=== PATIENT | male | born 1960 | race Caucasian/White ===

== ENCOUNTER 2020-01-10 01:16 | Day surgery (SDC) | payer BC, SELFPAY ==
[2020-01-04 14:40] VITALS: BMI 23.7
[2020-01-10 06:50] VITALS: BP 120/81; PULSE 63; RESP 16; TEMP 36.7; O2SAT 99
[2020-01-10] MEDS: LACTATED RINGERS 1,000 ML 150 ML IV CONT (07:21)
--- NOTE | 2020-01-10 07:23 | P.HP_ITS ---
History of Present Illness History of Present Illness Consent: Risks, benefits, and alternatives have been discussed and questions answered. Patient agrees to proceed with procedure. Chief complaint: neoplasm screening Narrative: Deshawn Kaplan is a 59 year old male here for screening colonoscopy [facility] Past Medical History Medical History Allergies Hypercholesterolemia Hyperglycemia Increasing prostate specific antigen level [place] exposure Mumps Myocardial infarction 02/2017 Surgical History Surgical History H/O foot surgery Left 2001 History of lumbar surgery 1989 S/P right coronary artery (RCA) stent placement Family History Family History Father Malignant neoplasm of prostate Mother Breast cancer Hypertension Diabetes mellitus Social History Social History Smoking status: Former smoker Smoking end date: 10/25/16 Alcohol intake: current Drinks per week: 5 Substance use: never Meds Home Medications and Allergies Home Medications Medication Instructions Recorded Confirmed Type aspirin 81 mg tablet,delayed 81 mg PO DAILY #90 tablet 09/13/19 01/05/20 Rx release atorvastatin 80 mg tablet 80 mg PO QPM #90 tablet 09/13/19 01/05/20 Rx metoprolol tartrate 25 mg tablet 12.5 mg PO BID #90 tablet 09/13/19 01/05/20 Rx Allergies Allergy/AdvReac Type Severity Reaction Status Date / Time Penicillins Allergy Unknown Hives Verified 01/05/20 09:06 Exam Resp: Auscultation: clear to auscultation bilaterally Cardio: Rate: regular rate Rhythm: regular rhythm GI: GI Palp: Yes Soft to palpation and No Tenderness to palpation present (GI) Assessment and Plan Assessment and plan (1) Colon cancer screening: Code(s): Z12.11 - Encounter for screening for malignant neoplasm of colon Status: Acute Assessment and Plan: Colonoscopy with possible biopsy or polypectomy or cautery or injection of substances.
--- NOTE | 2020-01-10 07:45 | WPDANESEPPF ---
Anes - Initial Pre Proc Eval Procedure: Operation Date: 01/10/20 08:00 Proposed Procedures p Screening Colonoscopy - Andrés Vang MD Date/Time: 01/10/20 07:45 Surgeon: Andrés Vang MD Pre Op Diagnosis: neoplasm screening Patient Data Age: 59 Gender: M Height: 6 ft 3 in Weight: 86 kg Last Vital Signs Temp 98.0 F 01/10/20 06:50 Pulse 63 01/10/20 06:50 Resp 16 01/10/20 06:50 BP 120/81 01/10/20 06:50 Pulse Ox 99 01/10/20 06:50 Allergies Allergy/AdvReac Type Severity Reaction Status Date / Time Penicillins Allergy Intermediate Hives Verified 01/10/20 07:29 Home Medications Medication Instructions Recorded Confirmed Type aspirin 81 mg tablet,delayed 81 mg PO DAILY #90 tablet 09/13/19 01/10/20 Rx release atorvastatin 80 mg tablet 80 mg PO QPM #90 tablet 09/13/19 01/10/20 Rx metoprolol tartrate 25 mg tablet 12.5 mg PO BID #90 tablet 09/13/19 01/10/20 Rx Patient hx anesthesia problems: none Family hx anesthesia problems: none PMFSH Past Medical History Medical History (Updated 01/10/20 @ 07:45 by Nando Escalera MD) Allergies Hypercholesterolemia Hyperglycemia Increasing prostate specific antigen level [place] exposure Mumps Myocardial infarction 02/2017; has one stent in plalce Surgical History Surgical History H/O foot surgery Left 2002 History of lumbar surgery 1989 S/P right coronary artery (RCA) stent placement Family History Family History Father Malignant neoplasm of prostate Mother Breast cancer Hypertension Diabetes mellitus Social History Social History Smoking status: Former smoker Smoking end date: 10/25/16 Alcohol intake: current Drinks per week: 5 Substance use: never Anes - Eval Final PreProcedure Day of Procedure 01/10/20 07:45 Patient weight: normal Heart: regular rate and rhythm Lungs: clear to auscultation Airway: Mallampati scale class II Neurological: alert and oriented Last oral intake: >/= 8 hours ASA classification: III Emergent: no Anesthetic plan: proceed Anesthesia type and monitoring: general GIVS and standard monitoring Informed Consent: The patient's anesthetic plan and its attendant risks and benefits were discussed with the patient/family/POA. Questions were solicited and answers provided to the satisfaction of the patient/family/POA.
[2020-01-10 08:25] VITALS: BP 101/70; PULSE 58; RESP 13; O2SAT 95
[2020-01-10 08:35] VITALS: BP 100/68; PULSE 56; RESP 13; O2SAT 97
[2020-01-10 08:45] VITALS: BP 108/76; PULSE 54; RESP 12; O2SAT 97
== END 2020-01-10 08:53 | disposition home or self-care (01) ==
PROVIDERS: PCP Internal Medicine; Visit Provider Internal Medicine Gastroenterology
PROC: 0DJD8ZZ Inspection of Lower Intestinal Tract, Via Natural or Artificial Opening Endoscopic (ICD-10-PCS; CPT 45378; principal; 2020-01-10 08:00)
DX: Z12.11 Encounter for screening for malignant neoplasm of colon (principal); D12.4 Benign neoplasm of descending colon; K57.30 Diverticulosis of large intestine without perforation or abscess without bleeding; E78.00 Pure hypercholesterolemia, unspecified; I25.2 Old myocardial infarction; Z95.5 Presence of coronary angioplasty implant and graft; Z79.82 Long term (current) use of aspirin; Z87.891 Personal history of nicotine dependence
CPT/HCPCS: 45385; 88305; J2704; J7120

== ENCOUNTER → 2023-01-21 14:28 | Outpatient (CLI) | payer BC, SELFPAY ==
--- NOTE | ~2023-01-21 | XR_ITS ---
XR hip RT 2V w AP pelvis DATE: 01/21/2023 14:46 INDICATION: Right hip pain for one week TECHNIQUE: AP pelvis. AP and lateral views of right hip COMPARISON: None FINDINGS: Degenerative disc disease and mild dextroscoliosis of the lumbar spine. Mild osteitis pubis. The pubic symphysis and sacral iliac joints are normally aligned. No pelvic frac ture or bone destruction. No fracture or dislocation, avascular necrosis or bone destruction of the right hip. Mild right hip o steoarthritis. Multiple nonspecific oval calcifications measuring approximately 10-12 mm overlie the pelvis. Cannot exclude bladder stones. IMPRESSION: Osteitis pubis No pelvic or right hip fracture or dislocation Reviewed, dictated and finalized at location L.
== END ==
PROVIDERS: PCP Internal Medicine; Visit Provider Nurse Practitioner
DX: M25.551 Pain in right hip (principal)
CPT/HCPCS: 73502

== ENCOUNTER 2025-03-27 09:17 | Outpatient (CLI) | payer MEDICARE, OTHER, SELFPAY ==
--- NOTE | ~2025-03-27 | XR_ITS ---
Left wrist Technique: PA, oblique, lateral, and ulnar deviation views were obtained. Clinical History: Pain Findings: No acute fracture or dislocation is seen. Osseous alignment is anatomic. Joint spaces are p reserved. Soft tissues are unremarkable. Impression: Unremarkable left wrist radiographs. Reviewed, dictated and finalized at location . Impression: Unremarkable left wrist radiographs.
--- NOTE | ~2025-03-27 | XR_ITS ---
Right wrist Technique: PA, oblique, lateral, and ulnar deviation views were obtained. Clinical History: Pain Findings: No acute fracture or dislocation is seen. Osseous alignment is anatomic. There is mild dege nerative change of the first CMC joint. Soft tissues are unremarkable. Impression: Mild degenerative change of the first CMC joint. Reviewed, dictated and finalized at [facility]. Impression: Mild degenerative change of the first CMC joint.
--- OUTSIDE RECORDS SUMMARY | 2025-03-27 09:39 | XMS_ITS | Referral Summary ---
Author Organization [facility] in [place] Address [address] [place] [address] Care Team Providers Care Sorting Grapple Operator Name Role Phone Hilario Rojas DO Primary Care Provider +1- [phone] Allergies Active Allergy Reactions Criticality Noted Date Comments Penicillin G Hives Medium 03/11/2017 Medications metoprolol (LOPRESSOR) 25 mg tabletIndicatio ns:hypertension Take 0.5 tablets (12.5 mg total) by mouth 2 times daily 03/13/2017 Active aspirin 81 mg enteric coated tabletIndicatio ns:for stent Take 1 tablet (81 mg total) by mouth every morning Active tamsulosin (FLOMAX) 0.4 mg extended release capsule TAKE 1 CAPSULE(0.4 MG) BY MOUTH EVERY NIGHT 30 capsule 2 03/03/2022 Active tamsulosin (FLOMAX) 0.4 mg extended release capsuleIndicati ons:Elevated PSA Take 1 capsule (0.4 mg total) by mouth nightly 90 capsule 3 04/02/2022 Active atorvastatin (LIPITOR) 20 mg tablet Take 1 tablet (20 mg total) by mouth daily 30 tablet 11 06/10/2022 Active Active Problems Problem Noted Date Diagnosed Date Mixed hyperlipidemia 06/14/2023 Presence of drug-eluting stent in right coronary artery 06/10/2022 Coronary artery disease invo lving [place] coronary artery of [place] heart without angina pectoris 05/15/2020 Old [place] (myocardial infarction) 05/15/2020 Essential hypertension 05/15/2020 Elevated PSA 10/06/2019 Overview (10/06/2019): Added automatically from request for surgery [id number] Social History Tobacco Use Types Packs/Day Years Used Date Smoking Tobacco: Former Cigarettes 0.5 20 1 7 - 2016 Smokeless Tobacco: Never Tobacco Cessation:Counseling Given: Not Answered Alcohol Use Standard Drinks/Week Comments Yes 0 (1 standard drink = 0.6 oz pur e alcohol) occasionally Sex and Gender Information Value Date Recorded Sex Assigned at Not on file 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 Gender Identity Not on file Sexual Orientation Not on file Last Filed Vital Signs Vital Sign Reading Time Taken Comments Blood Pressure 142/83 06/23/2024 3:01 PM CDT Pulse 70 06/23/2024 3:01 PM CDT Temperature 36.4 C (97.5 F) 05/15/2020 12:57 PM CDT Respiratory Rate 18 06/23/2024 3:01 PM CDT Oxygen Saturation 95% 03/05/2020 8:30 AM CDT Inhaled Oxygen Concentration - - Weight 93.9 kg (207 lb) 06/23/2024 3:01 PM CDT Height 190.5 cm (6' 3) 06/23/2024 3:01 PM CDT Body Mass Index 25.87 06/23/2024 3:01 PM CDT Plan of Treatment Not on file Medical Devices Implanted Type Area Php Web Developer Device Identifier Shelf Expiration Date Model / Serial / Lot Cardiac Stents Chest Description:Implanted in February 2017, per patient Insurance [employer] O[place] [employer] [place] [employer] OOS Care Teams Sorting Grapple Operator Relationship Specialty Start Date End Date Hilario Rojas DO PCP - General Internal Medicine 09/04/19
--- OUTSIDE RECORDS SUMMARY | 2025-03-27 09:39 | XMS_ITS | Clinical Summary ---
Author Organization [facility] Address [address] [place] [address] Care Team Providers Care Senior Marketing Data Analyst Name Role Phone Unavailable Primary Care Provider Unavailabl e Source Comments [facility],non-owned Affiliates and Associated Physician Practices is amultiple site organization consisting of ambulatory clinics and hospital sitesin [place], [place], [place] and [place]. This disclosure is being madepursuant to the Care Everywhere program and may not contain all information available regarding this patient. Last updated 18.[facility] Immunizations Immunization Administration Dates Next Due iNFLUENZA VACCINE, RECOM-BRIAN, QUADR. (FLUBLOCK QUADRIVALENT; 18Y+) (RIV4) 07/24/2018 Social History Tobacco Use Types Packs/Day Years Used Date Smoking Tobacco: Never Assessed Sex and Gender Information Value Date Recorded Sex Assigned at Not on file Legal Sex Male 12:46 PM CDT Gender Identity Not on file Sexual Orientation Not on file Plan of Treatment Health Maintenance Due Date Last Done Comments COLOGUARD (AGES 45-75) - COL ON CA SCREENING 1959 COLON MONITORING 1959 COLONOSCOPY - COLON CA SCREENING 1959 CT COLONOGRAPHY - COLON CA SCREENING 1959 Colorectal Cancer Screening 1959 FIT - COLON CA SCREENING 1959 FLEX SIG - COLON CA SCREENING 1959 HIV SCREENING 1974 HEPATITIS C SCREENING 07/15/1977 DTAP/TDAP/TD VACCINES (1 - Tdap) 1978 PNEUMOCOCCAL VACCINE 50+ (1 of 1 - PCV) 2009 ZOSTER VACCINE (1 of 2) 2009 LIPID TESTING 03/12/2022 03/12/2017 COVID-19 VACCINE (2023-2 5 season) 2024 DEPRESSION SCREENING 10/25/2024 INFLUENZA VACCINE (Season Ended) 2025 07/24/20 18 Respiratory Syncytial Virus (RSV) Vaccine Pt: or over 60 yrs (1 - 1-dose 75+ series) 2034 HEPATITIS B VACCINE Aged Out No longe r eligible based on patient's age to complete this topic HIB VACCINE Aged Out No longer eligi ble based on patient's age to complete this topic HPV VACCINE Aged Out No longer eligi ble based on patient's age to complete this topic MENINGOCOCCAL (Group B) VACC INE SHARED DECISION-MAKING Aged Out No longer eligibl e based on patient's age to complete this topic MENINGOCOCCAL GROUPS A/C/Y/W VACCINE Aged Out No longer eligible b ased on patient's age to complete this topic Insurance AETNA
--- OUTSIDE RECORDS SUMMARY | 2025-03-27 09:39 | XMS_ITS | Clinical Summary ---
Author Organization [facility] in [place] Address [address] [place] [address] Care Team Providers Care Repeat Photocomposing Machine Operator Name Role Phone Hilario Rojas DO Primary Care Provider +1- [phone] Allergies Active Allergy Reactions Criticality Noted Date [...] artery 06/10/2022 Coronary artery disease invo lving [place] coronary artery of [place] heart without angina pectoris 05/15/2020 Old [place] (myocardial infarction) 05/15/2020 Essential hypertension 05/15/2020 Elevated PSA 10/06/2019 Overview (10/06/2019): Added automatically from request for surgery [id number] Surgical History Surgery Date Site/Laterality Comments BACK SURGERY FOOT SURGERY Left TONSILLECTOMY CARDIAC CATHETERIZATION 03/19/2017 BMS mid RCA COLONOSCOPY 10/25/2019 - 10/24/2020 Medical History Medical History Date Comments Heart attack (HCC) Hypertension Chest pain Coronary artery disease Cardiac Stent Prostate disease Lesion Former smoker quit 2017 Elevated PSA Coronary artery disease invo lving [place] coronary artery of [place] heart without angina pectoris 05/15/2020 Family History Medical History Relation Name Comments Anesthesia problems Father Heart attack Father Prostate cancer Father Breast cancer Mother Relation Name Status Comments Father (Age 83) f rom [place], [place] at age 70 Mother Social History Tobacco Use Types Packs/Day Years Used Date Smoking Tobacco: Former Cigarettes 0.5 20 1 997 - 2016 Smokeless Tobacco: Never Tobacco Cessation:Counseling Given: Not Answered Alcohol Use Standard Drinks/Week Comments Yes 0 (1 standard drink = 0.6 oz pur e alcohol) occasionally Sex and Gender Information Value Date Recorded Sex Assigned at Not on file 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 Gender Identity Not on file Sexual Orientation Not on file Obstetrics History Last Filed Vital Signs Vital Sign Reading [...] 06/23/2024 3:01 PM CDT Plan of Treatment Health Maintenance Due Date Last Done Comments Colon Cancer Screening-Colonoscopy 1959 Depression Screening 1959 Hepatitis C Screening 1959 Prostate Cancer Screening-PSA 1959 DTaP/Tdap/Td Vaccine (1 - Tdap) 1970 Hepatitis B Screening 1977 Pneumococcal vaccine 65+ (1 of 1 - PCV) 2009 Zoster Vaccine (1 of 2) 2009 Fall Risk Assessment 03/05/2021 03/05/2020 Abdominal Aortic Aneurysm (A AA) Screen 2024 Well Visit 65+ 2024 Influenza Vaccine (Season Ended) 2025 08/30/2019, 07/24/2018, 08/20/2017 Medical Devices Implanted Type Area Fire Fighter [employer] Device Identifier Shelf Expiration Date Model / Serial / Lot Cardiac Stents Chest Description:Implanted in February 2017, per patient Insurance [employer] O[place] [employer] [place] [employer] O[employer] Care Teams Repeat Photocomposing Machine Operator Relationship Specialty Start Date End Date Hilario Rojas DO PCP - General Internal Medicine 09/04/19
--- OUTSIDE RECORDS SUMMARY | 2025-03-27 09:39 | XMS_ITS | Clinical Summary ---
Author Organization [facility] Address [address] [place] [address] Phone Care Team Providers Care Shampoo Person Name Role Phone Hilario Rojas DO Primary Care Provider Allergies Active Allergy Reactions Criticality Noted Date Comments Penicillin G Hives 03/11/2017 Medications HYDROcodone-acet aminophen (NORCO) 5-325 MG Tablet Take 1-2 Tabs by mouth every 6 hours as needed. 30 Tab 0 03/13/2017 Active atorvastatin (LIPITOR) 80 MG Tablet Take 1 Tab by mouth nightly. 90 Tab 3 03/13/2017 Active ticagrelor (BRILINTA) 90 MG Tablet Take 1 Tab by mouth 2 times daily. 180 Tab 3 03/13/2017 Active metoprolol tartrate (LOPRESSOR) 25 MG Tablet Take 0.5 Tabs by mouth 2 times daily. 180 Tab 3 03/13/2017 Active Active Problems Problem Noted Date Diagnosed Date ST elevation (STEMI) myocard ial infarction involving other coronary artery of inferior wall 03/11/2017 Family History Medical History Relation Name Comments Heart Attack Father Diabetes Mother Relation Name Status Comments Father Mother Social History Tobacco Use Types Packs/Day Years Used Date Smoking Tobacco: Every Day Cigarettes Tobacco Cessation:Ready to Q uit: No Alcohol Use Standard Drinks/Week Comments Yes 0 (1 standard drink = 0.6 oz pur e alcohol) 3-4 beers weekly Sex and Gender Information Value Date Recorded Sex Assigned at Not on file Legal Sex Male 12:36 AM CDT Gender Identity Not on file Sexual Orientation Not on file Last Filed Vital Signs Vital Sign Reading Time Taken Comments Blood Pressure 111/68 03/13/2017 7:01 AM CDT Pulse 64 03/13/2017 7:01 AM CDT Temperature 36.7 C (98.1 F) 03/13/2017 7:01 AM CDT Respiratory Rate 18 03/13/2017 7:01 AM CDT Oxygen Saturation 99% 03/13/2017 7:11 AM CDT Inhaled Oxygen Concentration - - Weight 86.2 kg (190 lb) 03/11/2017 1:47 PM CDT Height 177.8 cm (5' 10) 03/11/2017 1:47 PM CDT Body Mass Index 27.26 03/11/2017 1:47 PM CDT Plan of Treatment Health Maintenance Due Date Last Done Comments Hepatitis C Virus (HCV) Screening 1959 TdaP Immunization 1959 Pneumococcal Immunization Co mbined (1 of 2 - PCV) 1965 Colonoscopy 2004 Colorectal Cancer Screening 2004 Cologuard 2009 Immunochemical Fecal Occult Blood 2009 Pneumococcal Immunization (5 0+ years) (1 of 1 - PCV) 2009 Zoster Immunization (1 of 2) 2009 PSA Discussion 2014 Influenza Immunization (#1) 2024 SARS-COV-2 Immunization (1 - 2023- season) 2024 Respiratory Syncytial Virus (RSV) Immunization (Adult) (1 - 1-dose 75+ series) 2034 Hepatitis B Immunization Aged Out No longer eligible based on patient's age to complete this topic Meningococcal Immunization (ACWY) Aged Out No longer eligible based on patient's age to complete this topic Rotavirus Immunization Aged Out No lo nger eligible based on patient's age to complete this topic Medical Devices Implanted Type Area Dairy Machine Operator Farmworker Device Identifier Shelf Expiration Date Model / Serial / Lot Angioseal Vip 6fr - [id number] Implanted:Qty : 1 on 03/11/2017 by Claudette Mirza MD at [facility] IMPLANT Right: Groin [facility] JOHN / ATRIAL FIB 07/24/2017 [id number] / / [id number] Stent Rx Mtlnk Ultra 4.5x28mm - [id number] Implanted:Qty : 1 on 03/11/2017 by Claudette Mirza MD at [facility] IMPLANT Coronary [employer] 10/24/2018 [id number] Care Teams Shampoo Person Relationship Specialty Start Date End Date Hilario Rojas DO [facility] [place] [address] PCP - General Internal Medicine 03/11/17
== END 2025-03-27 09:18 | disposition home or self-care (01) ==
PROVIDERS: PCP Internal Medicine; Visit Provider Plastic Surgery
DX: M25.532 Pain in left wrist (principal); M19.031 Primary osteoarthritis, right wrist
CPT/HCPCS: 73110

== ENCOUNTER 2025-04-20 09:38 | Outpatient (CLI) | payer MEDICARE, OTHER, SELFPAY ==
--- NOTE | ~2025-04-20 | MR_ITS ---
MRI of the left wrist Technique: Coronal T1 weighted and proton density fat sat images, and axial and sagittal proton-densi ty and proton-density fat-sat images were acquired. Clinical History: Scapholunate ligament tear, extensor tendinitis Findings: There is mild thickening and increased signal seen Ligament, but no tear identified. Lunotriquetral ligament appears intact. There is degenerative signa l in the central articular disc of the TFCC without evidence for perforation. Possible tear of the ul silvia styloid insertion of the TFCC. There is moderate degenerative change of the first CMC joint, with subchondral cystic change at the b ase the first metacarpal. There is polyarticular osteoarthritic change in the wrist, with mild amorph ous marrow edema in the lunate and triquetrum in particular, as well as of the base of the capitate. There is mild degenerative change of the triscaphe joint. Flexor tendons and carpal tunnel are unremarkable. There is mild tendinosis of the extensor carpi uln mick tendon. Remaining extensor tendons are intact. No soft tissue mass or fluid collection seen. IMPRESSION: Chronic changes of the scapholunate ligament, with thickening and increased signal, but no evidence o f tear. 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 Mild tendinosis of the extensor carpi ulnaris tendon. Possible tear of the ulnar styloid insertion of the TFCC. Reviewed, dictated and finalized at location . IMPRESSION: Chronic changes of the scapholunate ligament, with thickening and increased sig nal, but no evidence of tear. 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 Mild tendinosis of the extensor carpi ulnaris tendon. Possible tear of the ulnar styloid insertion of the TFCC.
== END 2025-04-20 09:39 | disposition home or self-care (01) ==
PROVIDERS: PCP Internal Medicine; Visit Provider Plastic Surgery
DX: M25.531 Pain in right wrist (principal); S63.512A Sprain of carpal joint of left wrist, initial encounter; X58.XXXA Exposure to other specified factors, initial encounter; M19.032 Primary osteoarthritis, left wrist
CPT/HCPCS: 73221

== ENCOUNTER 2025-06-05 08:27 | Outpatient (CLI) | payer MEDICARE, OTHER, SELFPAY ==
--- NOTE | ~2025-06-05 | XR_ITS ---
XR wrist LT w scaphoid 06/05/2025 08:47 INDICATION: Left wrist pain PROCEDURE: 5 views left wrist COMPARISON: 03/27/2025 FINDINGS: Fracture, dislocation or subluxation is not identified. The soft tissues appear within norm al limits. No foreign bodies are identified. IMPRESSION: 1: NO ACUTE BONE OR JOINT ABNORMALITY IDENTIFIED. Reviewed, dictated and finalized at location A.
--- OUTSIDE RECORDS SUMMARY | 2025-06-05 08:41 | XMS_ITS | Clinical Summary ---
Author Organization [facility] in [place] Address [address] [place] [address] Care Team Providers Care Slot Host Name Role Phone Hilario Rojas DO Primary Care Provider +1- [phone] Allergies Active Allergy Reactions Criticality Noted Date [...] artery 06/10/2022 Coronary artery disease invo lving [place] coronary artery of [place] heart without angina pectoris 05/15/2020 Old [place] (myocardial infarction) 05/15/2020 Essential hypertension 05/15/2020 Elevated PSA 10/06/2019 Overview (10/06/2019): Added automatically from request for surgery [id number] Surgical History Surgery Date Site/Laterality Comments BACK SURGERY FOOT SURGERY Left TONSILLECTOMY CARDIAC CATHETERIZATION 03/19/2017 BMS mid RCA COLONOSCOPY 10/25/2019 - 10/24/2020 Medical History Medical History Date Comments Heart attack (HCC) Hypertension Chest pain Coronary artery disease Cardiac Stent Prostate disease Lesion Former smoker quit 2017 Elevated PSA Coronary artery disease invo lving [place] coronary artery of [place] heart without angina pectoris 05/15/2020 Family History Medical History Relation Name Comments Anesthesia problems Father Heart attack Father Prostate cancer Father Breast cancer Mother Relation Name Status Comments Father (Age 83) f rom [place], [place] at age 70 Mother Social History Tobacco [...] on file 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
--- OUTSIDE RECORDS SUMMARY | 2025-06-05 08:41 | XMS_ITS | Clinical Summary ---
Author Organization [facility] Address [address] [place] [address] Care Team Providers Care Repair Department Manager Name Role Phone Unavailable Primary Care Provider Unavailabl e Source Comments [facility],non-owned Affiliates and Associated Physician Practices is amultiple site organization consisting of ambulatory clinics and hospital sitesin [place], [place], [place] and [place]. This disclosure is being madepursuant to the Care Everywhere program and may not contain all information available regarding this patient. Last updated 18.[facility] Immunizations Immunization Administration Dates Next Due iNFLUENZA [...] season) 2024 DEPRESSION SCREENING 10/25/2024 INFLUENZA VACCINE (#1) 2025 07/24/2018 Respiratory Syncytial Virus (RSV) Vaccine Pt: or [...] age to complete this topic Insurance [employer] [facility] Address: [facility] [id number] [place] [id number]
--- OUTSIDE RECORDS SUMMARY | 2025-06-05 08:41 | XMS_ITS | Clinical Summary ---
Author Organization [facility] Address [address] [place] [address] Phone Care Team Providers Care Survey Analyst Name Role Phone Hilario Rojas DO Primary [...] Virus (HCV) Screening 1959 TdaP Immunization 1959 Cologuard 2004 Colonoscopy 2004 Colorectal Cancer Screening 2004 Immunochemical Fecal Occult Blood 2004 Pneumococcal Immunization (5 0+ years) (1 of 1 - PCV) 2009 Zoster Immunization (1 of 2) 2009 SARS-COV-2 Immunization (1 - 2023- season) 2024 Influenza Immunization (#1) 2025 Respiratory Syncytial Virus (RSV) Immunization (Adult) (1 - 1-dose 75+ series) 2034 Hepatitis B Immunization Aged Out No longer eligible based on patient's age to complete this topic Human Papillomavirus (HPV) Immunization Aged Out No longer eligible b ased on patient's age to complete this topic Meningococcal Immunization (ACWY) Aged Out No longer eligible based on patient's age to complete this topic Rotavirus Immunization Aged Out No lo nger eligible based on patient's age to complete this topic Medical Devices Implanted Type Area Traffic Assistant Device Identifier Shelf Expiration Date Model / Serial / Lot Angioseal Vip 6fr - [id number] Implanted:Qty : 1 on 03/11/2017 by Claudette Mirza MD at [facility] IMPLANT Right: Groin ST JOHN / ATRIAL FIB 07/24/2017 [id number] / / [id number] Stent Rx Mtlnk Ultra 4.5x28mm - [id number] Implanted:Qty : 1 on 03/11/2017 by Claudette Mirza MD at [facility] IMPLANT Coronary [facility] 10/24/2018 [id number] Care Teams Survey Analyst Relationship Specialty Start Date End Date Hilario Rojas DO [facility] [facility] [place] [address] PCP - General Internal Medicine 03/11/17
== END 2025-06-05 08:28 | disposition home or self-care (01) ==
PROVIDERS: PCP Internal Medicine; Visit Provider Plastic Surgery
DX: S63.512D Sprain of carpal joint of left wrist, subsequent encounter (principal); X58.XXXD Exposure to other specified factors, subsequent encounter
CPT/HCPCS: 73110

== ENCOUNTER 2025-10-04 03:46 | Day surgery (SDC) | payer MEDICARE, OTHER, SELFPAY ==
[2025-09-11 13:54] VITALS: BMI 24.5
--- OUTSIDE RECORDS SUMMARY | 2025-10-04 03:49 | XMS_ITS | Clinical Summary ---
Author Organization [facility] Address [address] [place] [address] Care Team Providers Care Solar Field Installation Crew Member Name Role Phone Unavailable Primary Care Provider Unavailabl e Source Comments [facility],non-owned Affiliates and Associated Physician Practices is amultiple site organization consisting of ambulatory clinics and hospital sitesin [place], [place], [place] and [place]. This disclosure is being madepursuant to the Care Everywhere program and may not contain all information available regarding this patient. Last updated 18.[facility] Immunizations Immunization Administration Dates Next Due iNFLUENZA [...] FLEX SIG - COLON CA SCREENING 1959 LIPID TESTING 1959 HEPATITIS C SCREENING 07/15/1977 DTAP/TDAP/TD VACCINES (1 - Tdap) 1978 PNEUMOCOCCAL VACCINE 50+ (1 of 1 - PCV) 2009 ZOSTER VACCINE (1 of 2) 2009 DEPRESSION SCREENING 10/25/2024 COVID-19 VACCINE (1 - 2024-2 6 season) 2025 INFLUENZA VACCINE (#1) 2025 07/24/2018 Respiratory Syncytial [...]
--- OUTSIDE RECORDS SUMMARY | 2025-10-04 03:49 | XMS_ITS | Clinical Summary ---
Author Organization [facility] [place] Address [address] [place] [address] Care Team Providers Care Group Fitness Department Head Name Role Phone Hilario Rojas DO Primary Care Provider [phone]- [phone] Allergies Active Allergy Reactions Criticality Noted Date [...] artery 06/10/2022 Coronary artery disease invo lving [place] coronary artery of [place] heart without angina pectoris 05/15/2020 Old [place] (myocardial infarction) 05/15/2020 Essential hypertension 05/15/2020 Elevated PSA 10/06/2019 Overview (10/06/2019): Added automatically from request for surgery [id number] Encounters Date Type Department Care Team Description 08/07/2025 9:55 AM CDT Therapy [facility] Medicine Occupational Therapy [address] [place] [id number] Cesilia Butts OT Left wrist pain (Primary Dx) 08/07/2025 9:00 AM CDT - 08/07/2025 11:59 PM CDT Hospital Encounter [facility] ([facility]) [address] [place] [address] Discharge Disposition: Discharge to home or self care 08/07/2025 8:59 AM CDT - 08/07/2025 11:59 PM CDT Hospital Encounter [facility] ([facility]) [address] [place] [address] Discharge Disposition: Discharge to home or self care 08/07/2025 8:20 AM CDT Office Visit [facility] Medicine Orthopaedic Surgery [address] [place] [address] Easton Jasmine MD Left wrist pain (Primary Dx); Midcarpal instability of left wrist 08/07/2025 Plan of Care Documentation [facility] Medicine Occupational Therapy [address] [place] [id number] from Last 3 Months Surgical History Surgery Date Site/Laterality Comments BACK SURGERY FOOT SURGERY Left TONSILLECTOMY CARDIAC CATHETERIZATION 03/19/2017 BMS mid RCA COLONOSCOPY 10/25/2019 - 10/24/2020 Medical History Medical History Date Comments Heart attack (HCC) Hypertension Chest pain Coronary artery disease Cardiac Stent Prostate disease Lesion Former smoker quit 2016 Elevated PSA Coronary artery disease invo lving [place] coronary artery of [place] heart without angina pectoris 05/15/2020 Family History Medical History Relation Name Comments Anesthesia problems Father Heart attack Father Prostate cancer Father Breast cancer Mother Relation Name Status Comments Father (Age 83) f rom [place]DS, [place] at age 70 Mother Social History Tobacco Use Types Packs/Day Years Used Date Smoking Tobacco: Former Cigarettes 0.5 20 1 997 - 2017 Smokeless Tobacco: Never Tobacco Cessation:Counseling Given: Not Answered Alcohol Use Standard Drinks/Week Comments Yes 0 (1 standard drink = 0.6 oz pur e alcohol) occasionally Sex and Gender Information Value Date Recorded Sex Assigned at Not on file Legal Sex 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 Gender Identity Not on file Sexual Orientation Not on file Last Filed Vital Signs Vital Sign Reading Time Taken Comments Blood Pressure 129/92 06/26/2025 1:00 PM CDT Pulse 74 06/26/2025 1:00 PM CDT Temperature 36.4 C (97.5 F) 05/15/2020 12:57 PM CDT Respiratory Rate 18 06/23/2024 3:01 PM CDT Oxygen Saturation 95% 03/05/2020 8:30 AM CDT Inhaled Oxygen Concentration - - Weight 87.5 kg (193 lb) 06/26/2025 1:00 PM CDT Height 190.5 cm (6' 3) 06/26/2025 1:00 PM CDT Body Mass Index 24.12 06/26/2025 1:00 PM CDT Plan of Treatment Health Maintenance [...] 65+ 2024 Influenza Vaccine (#1) 2025 , 07/23/2020, 08/30/2019, Additional history exists Medical Devices Implanted Type Area Wad Compressor Operator Adjuster Device Identifier Shelf Expiration Date Model / Serial / Lot Cardiac Stents Chest Description:Implanted in February 2017, per patient Procedures Procedure Name Priority Date/Time Associated Diagnosis Comments XR TRANSFER OF OUTSIDE FILMS Routine 08/07/2025 9:00 AM CDT DAVID MR OUTSIDE REFERENCE Routine 08/07/2025 8:59 AM CDT from Last 3 Months Results * XR Outside Reference (08/07/2025 9:00 AM CDT) Impressions [facility] - 08/07/2025 9:00 AM CDT These images are for Reference purposes only and have not been reviewed by [facility] Radiology. There will be no report generated by a [facility] Radiologist. Narrative [facility] - 08/07/2025 9:00 AM CDT EXAMINATION: Images For Reference Purposes Only Easton Jasmine MD IMG XR PROCEDURES Fi nal Result Performing Organization Address [facility] de Phone Number [facility] * MSK MR Outside Reference (08/07/2025 8:59 AM CDT) Impressions [facility] - 08/07/2025 8:59 AM CDT These images are for Reference purposes only and have not been reviewed by [facility] Radiology. There will be no report generated by a [facility] Radiologist. Narrative [facility] - 08/07/2025 8:59 AM CDT EXAMINATION: Images For Reference Purposes Only Easton Jasmine MD IMG MRI PROCEDURES F inal Result Performing Organization Address [facility] de Phone Number [facility] from Last 3 Months Insurance MEDICARE [facility] MEDICARE [facility] Care Teams Group Fitness Department Head Relationship Specialty Start Date End Date Hilario Rojas DO PCP - General Internal Medicine 09/04/19
--- OUTSIDE RECORDS SUMMARY | 2025-10-04 03:49 | XMS_ITS | Clinical Summary ---
Author Organization [facility] Address [address] [place] [address] Phone Care Team Providers Care Senior Business Broker Name Role Phone Hilario Rojas DO Primary [...] 2009 Zoster Immunization (1 of 2) 2009 Influenza Immunization (#1) 2025 SARS-COV-2 Immunization (1 - 2023- season) 2025 Respiratory Syncytial Virus (RSV) Immunization (Adult) [...] this topic Medical Devices Implanted Type Area Beam Racker Device Identifier Shelf Expiration Date Model / Serial / Lot Angioseal Vip 6fr - [id number] Implanted:Qty : 1 on 03/11/2017 by Claudette Mirza MD at [facility] IMPLANT Right: Groin [facility] [employer] / ATRIAL FIB 07/24/2017 [id number] / / [id number] Stent Rx Mtlnk Ultra 4.5x28mm - [id number] Implanted:Qty : 1 on 03/11/2017 by Claudette Mirza MD at [facility] IMPLANT Coronary [facility] 10/24/2018 [id number] Care Teams Senior Business Broker Relationship Specialty Start Date End Date Hilario Rojas DO [facility] [facility] [place] [address] PCP - General Internal Medicine 03/11/17
[2025-10-04 07:36] VITALS: BP 133/81; PULSE 69; RESP 16; TEMP 36.2; O2SAT 99; BMI 23.2
[2025-10-04] MEDS: LACTATED RINGERS 1,000 ML 150 ML IV CONT (07:45)
--- NOTE | 2025-10-04 07:50 | PM.IMHP2 ---
H&P: HPI History of Present Illness Date/Time: 10/04/25 07:50 Chief Complaint: History of colon polyps Narrative: The patient has a history of colonic polyps, the last colonoscopy was 5 years ago, detecting a single small tubular adenoma. Review of Systems Review of Systems: All systems reviewed & are unremarkable except as noted in HPI and below [facility] Past Medical History Medical History (Updated 10/04/25 @ 07:51 by Lupillo Johnson MD) Hypertension Mumps [place] exposure Allergies Hyperglycemia Increasing prostate specific antigen level Myocardial infarction 02/2017; has one stent in plalce Hypercholesterolemia Surgical History Surgical History H/O foot surgery Left 2002 History of lumbar surgery 1989 S/P right coronary artery (RCA) stent placement Family History Family History Father Malignant neoplasm of prostate Mother Breast cancer Hypertension Diabetes mellitus Social History Social History Smoking status: Former smoker Smoking end date: 10/25/16 Alcohol intake: current Drinks per week: 5 Alcohol use details: Pt drinks weeky. 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, load trucks Meds Home Medications and Allergies Home Medications ?Medication ?Instructions ?Recorded ?Confirmed ?Type aspirin 81 mg tablet,delayed 81 mg PO DAILY #90 tabs 09/13/19 10/04/25 Rx release (Adult Low Dose Aspirin) triamcinolone acetonide 0.1 % 1 applic topical BID #30 grams 03/15/25 09/11/25 Rx topical cream atorvastatin 20 mg tablet 20 mg PO QHS #90 tabs 06/26/25 10/04/25 Rx metoprolol tartrate 25 mg tablet 12.5 mg (1/2 x 25 mg) PO BID #90 09/02/25 12/11/25 Rx tabs Allergies Allergy/AdvReac Type Severity Reaction Status Date / Time Penicillins Allergy Intermediate Hives Verified 10/04/25 07:36 Vital Signs Vital Signs - 24 hr 10/04/25 07:36 Temperature 97.2 F L Pulse Rate 69 Respiratory Rate 16 Blood Pressure 133/81 Pulse Oximetry 99 Oxygen Delivery Room Air Exam Const: General: cooperative and healthy appearing Resp: Effort & Inspection: normal respiratory effort and able to speak in complete sentences Auscultation: clear to auscultation bilaterally Cardio: Rate: regular rate Rhythm: regular rhythm GI: Inspection: normal to inspection GI Palp: No No hepatosplenomegaly present Auscultation: normal bowel sounds Rectal Exam: deferred Skin: General skin exam: normal color Psych: Appearance: grossly normal Mental Status: mental status grossly normal Assessment and Plan Assessment and plan (1) History of colonic polyps: Code(s): Z86.0100 - Personal history of colon polyps, unspecified Status: Acute Assessment and Plan: The patient is deemed a good candidate for the procedure. Consent signed. Will proceed. Prior Studies I have reviewed the following patient records and this information was taken into consideration when formulating the assessment and plan.: previous labs, previous ER visits, previous hospitalizations and previous clinic visits
--- NOTE | 2025-10-04 08:01 | WPDANESEPPF ---
Anes - Initial Pre Proc Eval Procedure: Operation Date: 10/04/25 09:00 Proposed Procedures p Screening Colonoscopy - Lupillo Johnson MD Date/Time: 10/04/25 08:01 Surgeon: Lupillo Johnson MD Pre Op Diagnosis: Personal history of colon polyps, unspecified Patient Data Age: 65 Gender: M Height: 1.93 m Weight: 86.7 kg Last Vital Signs Temp 97.2 F L 10/04/25 07:36 Pulse 69 10/04/25 07:36 Resp 16 10/04/25 07:36 BP 133/81 10/04/25 07:36 Pulse Ox 99 10/04/25 07:36 O2 Del Method Room Air 10/04/25 07:36 Allergies Allergy/AdvReac Type Severity Reaction Status Date / Time Penicillins Allergy Intermediate Hives Verified 10/04/25 07:36 Home Medications ?Medication ?Instructions ?Recorded ?Confirmed ?Type aspirin 81 mg tablet,delayed 81 mg PO DAILY #90 tabs 09/13/19 10/04/25 Rx release (Adult Low Dose Aspirin) triamcinolone acetonide 0.1 % 1 applic topical BID #30 grams 03/15/25 09/11/25 Rx topical cream atorvastatin 20 mg tablet 20 mg PO QHS #90 tabs 06/26/25 10/04/25 Rx metoprolol tartrate 25 mg tablet 12.5 mg (1/2 x 25 mg) PO BID #90 06/26/25 10/04/25 Rx tabs Patient hx anesthesia problems: none Family hx anesthesia problems: none Results Review: All pre-operative results and documents have been reviewed as part of the pre-operative evaluation. [facility] Past Medical History Medical History (Updated 10/04/25 @ 07:51 by Lupillo Johnson MD) Hypertension Mumps [place] exposure Allergies Hyperglycemia Increasing prostate specific antigen level Myocardial infarction 02/2017; has one stent in plalce Hypercholesterolemia Surgical History Surgical History H/O foot surgery Left 2002 History of lumbar surgery 1989 S/P right coronary artery (RCA) stent placement Family History Family History Father Malignant neoplasm of prostate Mother Breast cancer Hypertension Diabetes mellitus Social History Social History Smoking status: Former smoker Smoking end date: 10/25/16 Alcohol intake: current Drinks per week: 5 Alcohol use details: Pt drinks weeky. 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 Informed Consent: The patient's anesthetic plan and its attendant risks and benefits were discussed with the patient/family/POA. Questions were solicited and answers provided to the satisfaction of the patient/family/POA.
[2025-10-04] MEDS: SIMETHICONE ORAL SUSPENSION 20 MG/0.3 ML 30 ML BOTTLE 0.6 ML IRRIGATION (08:26)
[2025-10-04 08:34] VITALS: BP 108/73; PULSE 64; RESP 16; O2SAT 96
[2025-10-04 08:44] VITALS: BP 100/72; PULSE 61; RESP 21; O2SAT 97
[2025-10-04 08:54] VITALS: BP 117/76; PULSE 60; RESP 17; O2SAT 98
== END 2025-10-04 09:04 | disposition home or self-care (01) ==
PROVIDERS: PCP Internal Medicine; Referring Provider Nurse Practitioner; Visit Provider Internal Medicine Gastroenterology
PROC: 0DJD8ZZ Inspection of Lower Intestinal Tract, Via Natural or Artificial Opening Endoscopic (ICD-10-PCS; CPT 45378; principal; 2025-10-04 09:00)
DX: Z12.11 Encounter for screening for malignant neoplasm of colon (principal); K64.8 Other hemorrhoids; K57.30 Diverticulosis of large intestine without perforation or abscess without bleeding; I10 Essential (primary) hypertension; R73.9 Hyperglycemia, unspecified; E78.00 Pure hypercholesterolemia, unspecified; I25.2 Old myocardial infarction; Z79.82 Long term (current) use of aspirin; Z98.890 Other specified postprocedural states; Z98.1 Arthrodesis status; Z95.5 Presence of coronary angioplasty implant and graft; Z86.0100 Personal history of colon polyps, unspecified; Z87.891 Personal history of nicotine dependence; Z80.42 Family history of malignant neoplasm of prostate; Z80.3 Family history of malignant neoplasm of breast
CPT/HCPCS: G0105; J2003; J2704; J7120